=== PATIENT | female | born 1960 | race Two or more races ===

== ENCOUNTER 2018-12-11 05:46 | Day surgery (SDC) | payer BC ==
[2018-12-11] MEDS ORDERED: MIDAZOLAM 1 MG/ML 2 ML INJ ×2 (08:25)
[2018-12-11] MEDS ORDERED: FENTAnyl 50 MCG/ML VIAL (08:25)
== END 2018-12-11 12:49 | disposition home or self-care (01) ==
LOC: GIL 05:46
DX: Z12.11 Encounter for screening for malignant neoplasm of colon (principal); D12.4 Benign neoplasm of descending colon; D64.4 Congenital dyserythropoietic anemia; K57.30 Diverticulosis of large intestine without perforation or abscess without bleeding
CPT/HCPCS: 45385; 88305